=== PATIENT | female | born 2000 | race African-American/Black ===

== ENCOUNTER 2024-04-29 10:32 | Emergency (ER) | payer MEDICAID ==
[~2024-04-29] VITALS: Ht 165.1 cm; Wt 55.0 kg
[2024-04-29 10:44] VITALS: O2SAT 100
[2024-04-29 11:05] LABS: BASOPHILS % 0.4 % (0.0-2.0); EOSINOPHILS % 0.6 % (0.0-5.0); HEMATOCRIT. 44.2 % (36.0-48.0); HEMOGLOBIN. 14.5 g/dL (12.0-16.0); LYMPHOCYTES % 25.7 % (20.0-50.0); MEAN CORPUSCULAR HEMOGLOBIN 28.2 pg (28.0-32.0); MEAN CORPUSCULAR HGB CONC 32.8 g/dL (31.0-37.0); MEAN CORPUSCULAR VOLUME 85.9 fL (81.0-99.0); MEAN PLATELET VOLUME 8.9 fl (7.4-10.4); MONOCYTES % 9.6 % (2.0-8.0); NEUTROPHILS % 63.7 % (40.0-76.0); PLATELET 231 x1000/uL (130-400); RED BLOOD CELL COUNT 5.15 mill/uL (4.2-5.4); RED CELL DISTRIBUTION WIDTH 14.5 % (11.6-14.6); WHITE BLOOD COUNT 5.5 x1000/uL (4.5-11.0)
[2024-04-29 11:17] LABS: CHLORIDE 105 mEq/L (98-107); POTASSIUM 3.9 mEq/L (3.5-5.1); SODIUM 135 mEq/L (136-145)
[2024-04-29 11:18] LABS: CALCIUM 9.3 mg/dL (8.7-10.4); CARBON DIOXIDE 21 mEq/L (21-32)
[2024-04-29 11:23] LABS: CREATININE 0.9 mg/dL (0.6-1.0); GLUCOSE 107 mg/dL (70-105); UREA NITROGEN BLOOD 12 mg/dL (9-23)
[2024-04-29 13:23] LABS: CLARITY URINE CLOUDY (CLEAR); COLOR URINE YELLOW (YELLOW); GLUCOSE URINE NEGATIVE (NEGATIVE); KETONES URINE 3+ (NEGATIVE); LEUKOCYTE ESTERASE URINE 2+ (NEGATIVE); NITRITE URINE NEGATIVE (NEGATIVE); OCCULT BLOOD URINE NEGATIVE (NEGATIVE); PROTEIN URINE TRACE (NEGATIVE); SPECIFIC GRAVITY URINE 1.027 (1.005-1.030)
[2024-04-29] MEDS ORDERED: DOXY100C5 MT (13:29)
[2024-04-29] MEDS ORDERED: METR-167 MT (13:29)
[2024-04-29 13:34] LABS: MUCUS URINE 3+ /lpf (< = 2+); SQUAMOUS EPITHELIAL CELL URINE 3+ /lpf (RARE/1+)
[2024-04-29 13:37] LABS: WBC URINE 25-50 /hpf (0-2)
[2024-04-29 13:38] LABS: BACTERIA URINE 3+; RBC URINE NONE SEEN /hpf (0-2)
[2024-04-29] MEDS: CEFTRIAXONE SODIUM 500MG VIAL IM ONE (14:03)
[2024-04-29] MEDS: LIDOCAINE HCL 1% 20ML VIAL INFIL ONE (14:04)
[2024-04-29 14:09] VITALS: BP 119/61; PULSE 60; RESP 18; TEMP 98.5
[2024-05-02 04:08] LABS: CHLAMYDIA TRACHOMATIS NAA Positive (Negative); NEISSERIA GONORRHOEAE NAA Negative (Negative)
== END 2024-04-29 14:15 | disposition home or self-care (01) ==
LOC: ER 10:32
DX: N73.0 Acute parametritis and pelvic cellulitis (principal)
CPT/HCPCS: 87491; 87591; 80048; 81003; 81025; 85025; 87086; 36415; 96372; 99283; J0696; J3490; Z7610